=== PATIENT | female | born 1965 | race African-American/Black ===

== ENCOUNTER 2019-09-04 18:33 | Emergency (ER) | payer SELFPAY ==
[~2019-09-04] VITALS: Ht 160 cm; Wt 79.0 kg
[2019-09-04] MEDS ORDERED: IBUPROFEN 600MG TABLET PO STA (20:24)
[2019-09-04 20:49] LABS: BASOPHILS % 0.9 % (0.0-2.0); EOSINOPHILS % 0.5 % (0.0-5.0); HEMATOCRIT. 37.1 % (36.0-48.0); HEMOGLOBIN. 12.7 g/dL (12.0-16.0); LYMPHOCYTES % 41.8 % (20.0-50.0); MEAN CORPUSCULAR HEMOGLOBIN 28.5 pg (28.0-32.0); MEAN CORPUSCULAR VOLUME 82.8 fL (81.0-99.0); MEAN PLATELET VOLUME 7.8 fl (7.4-10.4); MONOCYTES % 6.2 % (2.0-8.0); NEUTROPHILS % 50.6 % (40.0-76.0); PLATELET 256 x1000/uL (130-400); RED BLOOD CELL COUNT 4.48 mill/uL (4.2-5.4)
[2019-09-04 20:52] LABS: CHLORIDE 105 mEq/L (98-107)
[2019-09-04 21:17] VITALS: BP 154/87
== END 2019-09-04 21:20 | disposition home or self-care (01) ==
LOC: ER 18:33
DX: L03.211 Cellulitis of face (principal); R03.0 Elevated blood-pressure reading, without diagnosis of hypertension; D72.819 Decreased white blood cell count, unspecified
CPT/HCPCS: 36415; 80053; 83605; 85025; 99284